=== PATIENT | female | born 1980 | race Caucasian/White ===

== ENCOUNTER 2016-03-03 11:35 | Emergency (ER) | payer BC, OTHER ==
[2016-03-03 11:41] VITALS: BP 156/100; PULSE 78; TEMP 98; BMI 29.2
[2016-03-03 13:11] LABS: URINE APPEARANCE CLEAR; URINE BILIRUBIN NEGATIVE (NEGATIVE); URINE BLOOD NEGATIVE (NEGATIVE); URINE COLOR STRAW; URINE GLUCOSE (UA) NEGATIVE (NEGATIVE); URINE KETONE NEGATIVE (NEGATIVE); URINE LEUK ESTERASE NEGATIVE (NEGATIVE); URINE NITRITE NEGATIVE (NEGATIVE); URINE PROTEIN NEGATIVE (NEGATIVE); URINE UROBILINOGEN NEGATIVE E.U./dl (0.2-1.0)
--- NOTE | 2016-03-03 13:17 | PDOC ---
History of Present Illness - History of Present Illness Initial Comments: 03/03/16 13:25 The patient is a 35 year old female, A2 with significant past medical history of asthma and arthritis who presents to the emergency department with abdominal pain and nausea for approximately 1 month. The patient states that her symptoms started approximately 2 weeks after having a Monovisc injection for arthritis. The patient reports that her pain has been sharp and dull in nature, varying in severity. The pain is localized to the suprapubic region and she reports associated bloating. She reports constant nausea but denies any vomiting or diarrhea. The patient states the is a possibility that she could be ; LMP was Feb 10. She states she took a home test about 2 weeks ago that was negative. The patient reports some chest pain and difficulty breathing this morning when she woke up. She denies any cough, nasal congestion , or cold symptoms. The patient denies sick contacts. She denies recent illness , fevers, and chills. <Ya Corona - Last Filed: 03/03/16 13:25> - General History Source: Patient, Old Records Exam Limitations: No Limitations <Claudette Russ - Last Filed: 03/03/16 15:21> - General Chief Complaint: Pain Stated Complaint: ABD PAIN, PALPITATIONS (ASTHMA) Time Seen by Provider: 03/03/16 12:28 Past History <Ya Corona - Last Filed: 03/03/16 13:25> - Past Medical History Asthma: Yes - Reproductive History Is Patient Now?: No - Psycho/Social/Smoking Cessation Hx Anxiety: No Suicidal Ideation: No Smoking History: Never smoked Hx Alcohol Use: Yes (SOCIAL) Drug/Substance Use Hx: No Substance Use Type: None <Claudette Russ - Last Filed: 03/03/16 15:21> - Past Medical History Allergies/Adverse Reactions: Allergies Allergy/AdvReac Type Severity Reaction Status Date / Time No Known Allergies Allergy Verified 03/03/16 11:41 Home Medications: Ambulatory Orders NK [No Known Home Medication] 12/02/15 Review of Systems - Review of Systems Comments:: 03/03/16 13:25 GENERAL/CONSTITUTIONAL: No fever or chills. No weakness. HEAD, EYES, EARS, NOSE AND THROAT: No change in vision. No ear pain or discharge. No sore throat. CARDIOVASCULAR: +Chest pain, +shortness of breath. RESPIRATORY: No cough, wheezing, or hemoptysis. GASTROINTESTINAL: +Nausea, +abdominal pain. No vomiting, diarrhea, or constipation. GENITOURINARY: No dysuria, frequency, or change in urination. MUSCULOSKELETAL: No joint or muscle swelling or pain. No neck or back pain. SKIN: No rash NEUROLOGIC: No headache, vertigo, loss of consciousness, or change in strength/ sensation. ENDOCRINE: No increased thirst. No abnormal weight change. HEMATOLOGIC/LYMPHATIC: No anemia, easy bleeding, or history of blood clots. ALLERGIC/IMMUNOLOGIC: No hives or skin allergy. <Ya Corona - Last Filed: 03/03/16 13:25> *Physical Exam - Vital Signs Last Vital Signs Temp Pulse Resp BP Pulse Ox 98.0 F 78 20 156/100 100 03/03/16 11:38 03/03/16 11:38 03/03/16 11:38 03/03/16 11:38 03/03/16 11:38 - Physical Exam Comments: 03/03/16 13:27 GENERAL: Awake, alert, and fully oriented, in no acute distress HEAD: No signs of trauma EYES: PERRLA, EOMI, sclera anicteric, conjunctiva clear ENT: Auricles normal inspection, hearing grossly normal, nares patent, oropharynx clear without exudates. Moist mucosa NECK: Normal ROM, supple, no lymphadenopathy, JVD, or masses LUNGS: Breath sounds equal, clear to auscultation bilaterally. No wheezes, and no crackles HEART: Regular rate and rhythm, normal S1 and S2, no murmurs, rubs or gallops ABDOMEN: +Mild suprapubic tenderness to palpation. Soft, normoactive bowel sounds. No guarding, no rebound. No masses EXTREMITIES: Normal range of motion, no edema. No clubbing or cyanosis. No cords, erythema, or tenderness NEUROLOGICAL: Cranial nerves II through XII grossly intact. Normal speech, normal gait SKIN: Warm, Dry, normal turgor, no rashes or lesions noted. <Ya Corona - Last Filed: 03/03/16 13:25> - Vital Signs Last Vital Signs Temp Pulse Resp BP Pulse Ox 98.0 F 78 20 156/100 100 03/03/16 11:38 03/03/16 11:38 03/03/16 11:38 03/03/16 11:38 03/03/16 11:38 <DeeClaudette mendes - Last Filed: 03/03/16 15:21> ED Treatment Course - ADDITIONAL ORDERS Additional order review: Laboratory Results 03/03/16 12:44 Urine Color Straw Urine Appearance Clear Urine pH 7.0 Ur Specific [place] 1.008 Urine Protein Negative Urine Glucose (UA) Negative Urine Ketones Negative Urine Blood Negative Urine Nitrite Negative Urine Bilirubin Negative Urine Urobilinogen Negative Ur Leukocyte Esterase Negative Urine HCG, Qual Negative <Ya Corona - Last Filed: 03/03/16 13:25> - LABORATORY CBC & Chemistry Diagram: 03/03/16 13:54 03/03/16 13:54 - ADDITIONAL ORDERS Additional order review: Laboratory Results 03/03/16 12:44 Urine Color Straw Urine Appearance Clear Urine pH 7.0 Ur Specific [place] 1.008 Urine Protein Negative Urine Glucose (UA) Negative Urine Ketones Negative Urine Blood Negative Urine Nitrite Negative Urine Bilirubin Negative Urine Urobilinogen Negative Ur Leukocyte Esterase Negative Urine HCG, Qual Negative <Claudette Russ - Last Filed: 03/03/16 15:21> Medical Decision Making - Medical Decision Making 03/03/16 13:15 35 y/o female with h/o asthma and arthritis who presents to the ED with one month h/o intermittent vomiting, abdominal pain and fatigue. DDx includes ut is not limited to: , UTI, gall bladder disease, gastritis, electrolyte abnormality, toxic/metabolic derangement. Plan: 1. Urine analysis and urine 2. Labs 3. Observe and re-evaluate 03/03/16 15:19 Addendum: The labs were reviewed and are noted inthe EMR. The patient is not . She has mild elevations in her LFT's but otherwise are within acceptable ranges. I have discussed the results of all studies with the patient and have advised her to follow-up with her PCP. I have also advised her to RTER if Sx persist, worsen or new Sx arise. <Claudette Russ - Last Filed: 03/03/16 15:21> *DC/Admit/Observation/Transfer - Attestations Scribe Attestion: 03/03/16 13:27 Documentation prepared by Ya Corona, acting as medical artist for Claudette Russ MD. <Ya Corona - Last Filed: 03/03/16 13:25> - Discharge Dispostion Admit: No - Attestations Physician Attestion: 03/03/16 13:17 I, Dr. Claudette Russ, attest that the scribes documentation that appears above has been prepared under my direction and personally reviewed by me in its entirety. I confirmed that the note above accurately reflects all work, treatment, procedures, and medical decision-making performed by me. <Claudette Russ - Last Filed: 03/03/16 15:21> Diagnosis at time of Disposition: Nausea and vomiting, Abdominal pain - Discharge Dispostion Disposition: HOME Condition at time of disposition: Stable - Referrals Referrals: STAFF,NOT ON [Primary Care Provider] - - Patient Instructions Printed Discharge Instructions: DI for Abdominal Pain-Adult Additional Instructions: Follow-up with your primary care physician within the next 2 weeks. Return to the ED if your symptoms persist, worsen or new symptoms arise.
[2016-03-03 14:06] LABS: BASOPHIL 0.5 % (0-2.0); EOSINOPHIL 0.5 % (0-4.5); MCH 30.8 pg (25.7-33.7); MEAN CELL VOLUME 90.6 fl (80-96); MEAN PLT VOLUME 8.9 fl (7.5-11.1); NEUTROPHILS 66.3 % (42.8-82.8); PLATELET COUNT 254 K/MM3 (134-434); RDW 12.7 % (11.6-15.6); WHITE BLOOD COUNT 9.4 K/mm3 (4.0-10.0)
[2016-03-03] MEDS ORDERED: KETOROLAC TROMETHAMINE 30 MG/1 ML VIAL IVPUSH ONE (14:22)
[2016-03-03 14:38] LABS: ALBUMIN 3.8 g/dl (3.4-5.0); ANION GAP 11 (8-16); CALCIUM 8.9 mg/dL (8.5-10.1); CO2 26 mmol/L (21-32); CREATININE 0.7 mg/dL (0.55-1.02); GLUCOSE,RANDOM 87 mg/dL (74-106); SGOT/AST 35 U/L (15-37); SGPT/ALT 28 U/L (12-78)
[2016-03-03 14:39] LABS: ALK PHOS 129 U/L (45-117); BILIRUBIN,TOTAL 0.3 mg/dL (0.2-1.0); TOT PROT 7.3 g/dl (6.4-8.2)
[2016-03-03] MEDS ORDERED: IBUPROFEN 400 MG TABLET (FP) PO ONE ×2 (14:56→14:57)
--- NOTE | 2016-03-09 23:31 | EKG ---
Test Reason : Blood Pressure : / mmHG Vent. Rate : 078 BPM Atrial Rate : 078 BPM P-R Int : 152 ms QRS Dur : 080 ms QT Int : 366 ms P-R-T Axes : 045 043 028 degrees QTc Int : 417 ms NORMAL SINUS RHYTHM NORMAL ECG NO PREVIOUS ECGS AVAILABLE Confirmed by MICHAEL BANKS MD ([id number]) on 03/09/2016 11:31:00 PM Referred By: Confirmed By:MICHAEL BANKS MD
== END 2016-03-03 15:40 | disposition home or self-care (01) ==
LOC: JER 11:35
DX: R10.30 Lower abdominal pain, unspecified (principal); R11.2 Nausea with vomiting, unspecified; J45.909 Unspecified asthma, uncomplicated
CPT/HCPCS: 36415; 80053; 81003; 84703; 85025; 93005; 93010; 99282-25

== ENCOUNTER 2016-03-22 21:31 | Emergency (ER) | payer BC, OTHER ==
[2016-03-22 21:38] VITALS: BP 118/68; PULSE 88; TEMP 98.2; BMI 25.8
[2016-03-22] MEDS ORDERED: ALBUTEROL SO4 2.5/IPRATROPIUM 0.5 INH SOL 3 ML VIAL.NEB. NEB ONE ×4 (21:50→22:40)
[2016-03-22] MEDS ORDERED: predniSONE 20 MG TABLET (UD) PO ONE (21:51)
--- NOTE | 2016-03-22 21:52 | PDOC ---
History of Present Illness - General Chief Complaint: Asthma Stated Complaint: ASTHMA Time Seen by Provider: 03/22/16 21:39 History Source: Patient Exam Limitations: No Limitations - History of Present Illness Initial Comments: 03/22/16 22:08 Chief complaint: Asthma and cough Patient is a 35-year-old female with a history of asthma states that she doesn' t get it very often who states that her asthma isn't bothering her for the last 2 days and today she is coughing a lot. No fever, does not feel ill, no shortness of breath. Patient states she's been using her albuterol inhaler and nebulizer a lot in the last 2 days but doesn't feel better. Patient is able to speak easily but is coughing frequently. Patient takes no other medications and denies any other medical issues GENERAL/CONSTITUTIONAL: No fever, weakness. dizziness HEAD, EYES, EARS, NOSE AND THROAT: No change in vision. No ear pain or discharge. No sore throat. CARDIOVASCULAR: No chest pain RESPIRATORY: No shortness of breath, + cough GASTROINTESTINAL: No pain, nausea, vomiting, diarrhea or constipation GENITOURINARY: No dysuria MUSCULOSKELETAL: No neck or back pain SKIN: No rash NEUROLOGIC: No headache, vertigo, loss of consciousness, or loss of sensation. GENERAL: The patient is awake, alert, and fully oriented, in no acute distress. HEAD: Normal with no signs of trauma. EYES: Pupils equal, round and reactive to light, sclera anicteric, conjunctiva clear. ENT: pharynx: no erythema, no exudate, uvula midline NECK: supple CHEST: No gross wheezing, but is coughing frequently, rr ABD: soft, nontender EXTREMITIES: Normal range of motion, no edema. NEUROLOGICAL: Normal speech, normal gait. SKIN: Warm, Dry Past History - Past Medical History Allergies/Adverse Reactions: Allergies Allergy/AdvReac Type Severity Reaction Status Date / Time No Known Allergies Allergy Verified 03/22/16 21:35 Home Medications: Ambulatory Orders Albuterol 0.083% Nebulizer Annie [Ventolin 0.083%] 1 neb NEB Q4H 03/22/16 Albuterol Sulfate Inhaler - [Ventolin Hfa Inhaler -] 1 - 2 inh PO Q4H 03/22/16 Prednisone [Deltasone] 40 mg PO DAILY #8 tablet 03/22/16 Asthma: Yes - Psycho/Social/Smoking Cessation Hx Anxiety: No Suicidal Ideation: No Smoking History: Never smoked Hx Alcohol Use: Yes (SOCIAL) Drug/Substance Use Hx: No Substance Use Type: None *Physical Exam - Vital Signs Last Vital Signs Temp Pulse Resp BP Pulse Ox 98.2 F 88 20 118/68 100 03/22/16 21:35 03/22/16 21:35 03/22/16 21:35 03/22/16 21:35 03/22/16 21:35 Medical Decision Making - Medical Decision Making 03/22/16 22:11 Patient who states her asthma is bothering her for the last 2 days, coughing, patient states she hasn't been hospitalized since a child, does not remember if she's ever taken prednisone and denies prior history of intubation. Patient appears stable, coughing. Patient will get DuoNeb prednisone be reassessed. Patient is satting well, not tachycardic and appears well other than for the frequent coughing and the complaint of feeling her asthma bothering her 03/22/16 22:41 Patient has a positive test, patient informed, states she has vitamins which she will take. Patient's cough is improving, will send her home on prednisone since she isn't using the inhalers frequently without any relief and she will follow-up with her regular doctor. No antibiotics are indicated and patient will be unable to take cough medicine given that she is *DC/Admit/Observation/Transfer Diagnosis at time of Disposition: Asthma Qualifiers: Asthma severity: unspecified severity Asthma complication type: with acute exacerbation Qualified Code(s): J45.901 - Unspecified asthma with (acute) exacerbation Qualifiers: Weeks of gestation: unspecified Qualified Code(s): Z33.1 - state, incidental - Discharge Dispostion Disposition: HOME Condition at time of disposition: Stable Admit: No - Prescriptions Prescriptions: Prednisone [Deltasone] 40 mg PO DAILY #8 tablet - Patient Instructions Printed Discharge Instructions: Asthma -- Adult Additional Instructions: take vitamins Use your inhaler or nebulizer of albuterol every 4 hours as needed Starting tomorrow take the prednisone 40 mg once daily for another 4 days Return to the ER if fever, shortness of breath or feeling sicker Follow-up with your doctor this week for reevaluation and further instructions regarding medications
[2016-03-22] MEDS ORDERED: predniSONE 20 MG TABLET (UD) ONE (21:57)
== END 2016-03-22 22:50 | disposition home or self-care (01) ==
LOC: JER 21:31
DX: O99.89 Other specified diseases and conditions complicating pregnancy, childbirth and the puerperium (principal); J45.901 Unspecified asthma with (acute) exacerbation; Z3A.00 Weeks of gestation of pregnancy not specified
CPT/HCPCS: 84703; 99281-25

== ENCOUNTER 2016-06-03 09:01 | Emergency (ER) | payer OTHER ==
[2016-06-03 09:11] VITALS: BP 155/88; PULSE 99; TEMP 98.1; BMI 30.1
--- NOTE | 2016-06-03 09:24 | PDOC ---
[id number] Timing/Duration: reports: other Associated Symptoms: reports: cough, shortness of breath. denies: chest pain/ soreness, earache, fever/chills, muscle aches, nasal congestion, nasal drainage , sore throat <Tatyana Sainz Last Filed: 06/03/16 10:26> <Sven Rosales - Last Filed: 06/08/16 02:29> - General Chief Complaint: Respiratory Stated Complaint: SOB Time Seen by Provider: 06/03/16 09:13 Past History - Past Medical History Asthma: Yes Other medical history: migraines - Psycho/Social/Smoking Cessation Hx Anxiety: No Suicidal Ideation: No Smoking History: Never smoked Have you smoked in the past 12 months: No Information on smoking cessation initiated: No Hx Alcohol Use: No Drug/Substance Use Hx: No Substance Use Type: None <Tatyana Sainz - Last Filed: 06/03/16 10:26> <Sven Rosales - Last Filed: 06/08/16 02:29> - Past Medical History Allergies/Adverse Reactions: Allergies Allergy/AdvReac Type Severity Reaction Status Date / Time No Known Allergies Allergy Verified 03/22/16 21:35 Home Medications: Ambulatory Orders Cmb#95/Iron/FA/Dha [ + Dha Combo Pack] 1 each PO DAILY Review of Systems - Review of Systems Constitutional: No: Chills, Fever HEENTM: No: Ear Pain, Throat Pain Respiratory: Yes: Cough, Shortness of Breath Cardiac (ROS): No: Chest Pain, Palpitations ABD/GI: No: Nausea, Vomiting <Tatyana Sainz Last Filed: 06/03/16 10:26> *Physical Exam - Vital Signs Last Vital Signs Temp Pulse Resp BP Pulse Ox 98.1 F 99 H 18 155/88 98 06/03/16 09:08 06/03/16 09:08 06/03/16 09:08 06/03/16 09:08 06/03/16 09:08 - Physical Exam General Appearance: Yes: Appropriately Dressed. No: Apparent Distress HEENT: positive: Normal ENT Inspection, Normal Voice. negative: Scleral Icterus (R), Scleral Icterus (L) Neck: positive: Supple. negative: Lymphadenopathy (R), Lymphadenopathy (L) Respiratory/Chest: negative: Respiratory Distress Cardiovascular: positive: Regular Rate, S1, S2 Integumentary: positive: Dry, Warm Neurologic: positive: Fully Oriented, Alert, Normal Mood/Affect <Tatyana Sainz - Last Filed: 06/03/16 10:26> - Vital Signs Last Vital Signs Temp Pulse Resp BP Pulse Ox 98.1 F 99 H 18 155/88 99 06/03/16 09:08 06/03/16 09:08 06/03/16 09:08 06/03/16 09:08 06/03/16 10:11 <Sven Rosales - Last Filed: 06/08/16 02:29> Medical Decision Making - Medical Decision Making 06/03/16 09:23 36-year-old female, approximately 4 months w/ no issues w/ preg so far , p/w productive cough w/ sob x 4 days, no f/c. Denies CP, palpitations, leg pain or swelling. States she developed similar sxs 1 month ago and was seen at OSH and dx w/ pneumonia on CT chest which was negative for PE per pt. See exam Cough w/ sob Tx for PNA 1 month ago at OSH after p/w similar sxs, was r/o PE then Stable w/ unremarkable exam Possibly viral, r/o PNA, low suspicion for PE -CXr pending, radiology aware pt 06/03/16 09:37 06/03/16 10:27 CXR read as neg. Pt remains well buzz and stable, currently sitting on stretcher and texting on her phone. Will dc to continue f/u with OB <Tatyana Sainz - Last Filed: 06/03/16 10:26> - Medical Decision Making 06/08/16 02:29 The patient was seen and evaluated in conjunction with NICOLETTE Sainz under my direct supervision, ancillary studies were reviewed. I agree with the plan as outlined by NICOLETTE Sainz . <Sven Rosales - Last Filed: 06/08/16 02:29> *DC/Admit/Observation/Transfer <Tatyana Sainz - Last Filed: 06/03/16 10:26> <Sven Rosales - Last Filed: 06/08/16 02:29> Diagnosis at time of Disposition: URI (upper respiratory infection) Qualifiers: URI type: unspecified viral URI Qualified Code(s): J06.9 - Acute upper respiratory infection, unspecified - Discharge Dispostion Disposition: HOME Condition at time of disposition: Good - Referrals Referrals: STAFF,NOT ON [Primary Care Provider] - - Patient Instructions Printed Discharge Instructions: DI for Viral Upper Respiratory Infection -- Adult Additional Instructions: Continue to follow up with your OB. Return to ED for worsening of symptoms
== END 2016-06-03 10:38 | disposition home or self-care (01) ==
LOC: JER 09:01
DX: J06.9 Acute upper respiratory infection, unspecified (principal); B97.89 Other viral agents as the cause of diseases classified elsewhere; J45.909 Unspecified asthma, uncomplicated; G43.909 Migraine, unspecified, not intractable, without status migrainosus
CPT/HCPCS: 71010-TC; 99282-25

== ENCOUNTER 2016-09-10 06:42 | Emergency (ER) | payer OTHER ==
[2016-09-10 06:50] VITALS: BMI 34.0
[2016-09-10] MEDS ORDERED: ALBUTEROL SO4 0.083% IH SOL 2.5 MG/3 ML VIAL.NEB. NEB ONE ×2 (06:55→06:59)
--- NOTE | 2016-09-10 08:01 | PDOC ---
History of Present Illness - General Chief Complaint: Shortness of Breath Stated Complaint: DIFFICULTY BREATHING Time Seen by Provider: 09/10/16 07:02 - History of Present Illness Initial Comments: 09/10/16 09:23 Patient is a 36 year old female with a history of asthma who presents with SOB. The patient reports cough and nasal congestion beginning 5 days ago with associated SOB beginning 4 days ago. She states that since then, the SOB has been getting worse and is exacerbated by lying flat and exertion and has not been relieved with use of her albuterol inhaler. 1 day ago, she began experiencing nausea and an episode of vomiting prompting her to present to the ED today. She states that this SOB does not feel like her normal asthma exacerbations. She denies fevers, chills, chest pain, abdominal pain, or changes with urination or bowel movements. Past History - Past Medical History Allergies/Adverse Reactions: Allergies Allergy/AdvReac Type Severity Reaction Status Date / Time No Known Allergies Allergy Verified 09/10/16 06:50 Home Medications: Ambulatory Orders Cmb#95/Iron/FA/Dha [ + Dha Combo Pack] 1 each PO DAILY Albuterol Sulfate Inhaler - [Ventolin Hfa Inhaler -] 1 - 2 inh PO QID 09/10/16 Azithromycin 250 mg PO DAILY #4 tablet 09/10/16 Asthma: Yes - Psycho/Social/Smoking Cessation Hx Anxiety: No Suicidal Ideation: No Smoking History: Never smoked Have you smoked in the past 12 months: No Hx Alcohol Use: No Drug/Substance Use Hx: No Substance Use Type: None Review of Systems - Review of Systems Constitutional: No: Chills, Fever Respiratory: Yes: Cough, Shortness of Breath Cardiac (ROS): No: Chest Pain, Lightheadedness, Palpitations ABD/GI: Yes: Nausea, Vomiting. No: Constipated, Diarrhea : No: Dysuria Integumentary: No: Rash Neurological: No: Headache, Numbness, Tingling, Weakness *Physical Exam - Vital Signs Last Vital Signs Temp Pulse Resp BP Pulse Ox 98.3 F 115 H 22 131/80 96 09/10/16 06:48 09/10/16 07:35 09/10/16 07:35 09/10/16 07:35 09/10/16 07:35 - Physical Exam Comments: 09/10/16 09:33 General Appearance: Nourished. No Apparent Distress HEENT: No Pharyngeal Erythema, Tonsillar Exudate, Tonsillar Erythema Respiratory/Chest: Lungs Clear, Normal Breath Sounds. No Crackles, Rales, Rhonchi, Wheezing Cardiovascular: Regular Rhythm, Regular Rate. No Murmur, Gallop/S3, Gallop/S4 Gastrointestinal/Abdominal: Normal Bowel Sounds, Soft. No Guarding, Rebound, Tenderness Extremity: Normal Capillary Refill Integumentary: Normal Color, Dry, Warm Neurologic: Fully Oriented, Alert, Normal Mood/Affect, Normal Response ED Treatment Course - LABORATORY CBC & Chemistry Diagram: 09/10/16 09:03 09/10/16 09:03 - Medications Given in the ED: ED Medications Discontinued Medications Generic Name Dose Route Start Last Admin Trade Name Freq PRN Reason Stop Dose Admin Albuterol Sulfate 2 amp 09/10/16 06:59 09/10/16 07:00 Ventolin 0.083% Nebulizer Soln - NEB 09/10/16 07:00 2 amp NOW ONE Administration Medical Decision Making - Medical Decision Making 09/10/16 09:34 Patient is a 36 year old 30 week female who presents with SOB. Differential includes but is not limited to: Bronchitis, Asthma, Influenza, Pneumonia. Given her presentation and physical exam we will obtain a cbc, cmp to evaluate for infectious or metabolic etiologies. We don't wish to expose her to radiation due to her . We will obtain an influenza swab as well. It is likely her symptoms may be due to a bronchitis. She reports minimal improvement after an duoneb treatment. 09/10/16 10:30 CBC demonstrates an elevated WBC to 19. CMP is unremarkable and influenza swab is negative. Given her presenting symptoms as well as WBC elevation, we are concerned for a possible pneumonia component of her illness, however we do not wish to obtain a chest radiograph due to her . We gave the patient a dose of azithromycin here in the ED with improvement in her symptoms including improvement in her O2 sats now at 95% on RA. We discussed the results with the patient and feel comfortable discharging her home with a course of azithromycin. We discussed strict return precautions and advised her to follow up with her financial coordinator. The patient voiced understanding and is agreeable with the plan. *DC/Admit/Observation/Transfer Diagnosis at time of Disposition: Bronchitis Pneumonia Qualifiers: Pneumonia type: due to unspecified organism Laterality: unspecified laterality Lung location: unspecified part of lung Qualified Code(s): J18.9 - Pneumonia, unspecified organism - Discharge Dispostion Disposition: HOME Condition at time of disposition: Improved Admit: No - Prescriptions Prescriptions: Azithromycin 250 mg PO DAILY #4 tablet - Referrals Referrals: STAFF,NOT ON [Primary Care Provider] - - Patient Instructions Printed Discharge Instructions: DI for Acute Bronchitis, DI for Pneumonia -- Adult Additional Instructions: Please return to the ER if you experience concerning or worsening symptoms including fevers, chills, increased mucus production or increased shortness of breath. We have sent a prescription for Azithromycin 250mg that you should take once a day for 4 days beginning tomorrow. You may take Tylenol 650mg every 4 hours as needed for body aches. You may take over the counter cough suppressants such as guaifenesin for your cough. Please call to schedule a follow up appointment with your OB/financial coordinator to discuss your ER visit. DISCHARGE FROM LABOR AND DELIVERY DISCHARGE TO HOME TO KEEP YOUR NEXT SCHEDULED CARE APPOINTMENT. RETURN TO LABOR AND DELIVERY IF YOU ARE HAVING REGULAR CONTRACTIONS, YOU BREAK YOUR WATER, YOU HAVE PERIOD LIKE VAGINAL BLEEDING OR YOU ARE NOT FEELING YOUR BABY MOVE. BE SURE TO STAY HYDRATED BY DRINKING 8-10 GLASSES OF WATER EACH DAY. TAKE MEDICATIONS PRESCRIBED TO YOU FROM THE ER PHYSICIAN IF YOU HAVE ANY QUESTIONS OR CONCERNS YOU CAN CONTACT YOUR CARE PROVIDER OR LABOR AND DELIVERY AT [phone]. - Attestations Physician Attestion: 09/10/16 10:26 I, Dr. Donal Grajeda, attest that this document has been prepared under my direction and personally reviewed by me in its entirety. I further attest, that it accurately reflects all work, treatment, procedures and medical decision -making performed by me.
[2016-09-10] MEDS ORDERED: ACETAMINOPHEN 325 MG TABLET (FP) PO ONE (08:40)
[2016-09-10] MEDS ORDERED: SODIUM CHLORIDE 1,000 ML IV STA (08:40)
[2016-09-10] MEDS ORDERED: ACETAMINOPHEN 325 MG TABLET (FP) ONE (08:49)
--- NOTE | 2016-09-10 09:04 | PDOC ---
Attending Attestation - Resident Resident Name: Donal Grajeda - ED Attending Attestation I have performed the following: I have examined & evaluated the patient, The case was reviewed & discussed with the resident, I agree w/resident's findings & plan, Exceptions are as noted - HPI HPI: 09/10/16 08:51 36-year-old female with past medical history of asthma presents with upper respiratory infection symptoms. For last several days, patient reports a positive sick contact with a neighbor with URI symptoms. Subsequently developed nasal congestion, rhinorrhea and productive cough. Reported tactile fevers but initially denied dyspnea. Patient stated that she's been coughing frequently is now more dyspneic but denies midsternal chest pain. She has taken albuterol with no improvement in her symptoms. Denies prior history of pulmonary embolus. Came into the ED for further evaluation. - Physicial Exam PE: 09/10/16 08:53 GENERAL: Awake, alert, and fully oriented, in no acute distress. HEAD: No signs of trauma EYES: PERRLA, EOMI, sclera anicteric, conjunctiva clear ENT: Auricles normal inspection, hearing grossly normal, nares patent, oropharynx clear without exudates. NECK: Normal ROM, supple, no lymphadenopathy, JVD, or masses LUNGS: Breath sounds equal, clear to auscultation bilaterally. No wheezes, and no crackles HEART: Regular rate and rhythm, normal S1 and S2, no murmurs, rubs or gallops ABDOMEN: Soft, nontender, normoactive bowel sounds. No guarding, no rebound. No masses EXTREMITIES: Normal range of motion, no edema. No clubbing or cyanosis. No cords, erythema, or tenderness NEUROLOGICAL: Cranial nerves II through XII grossly intact. Normal speech, normal gait SKIN: Warm, Dry, normal turgor, no rashes or lesions noted. - Medical Decision Making 09/10/16 09:03 Vital Signs Temp Pulse Resp BP Pulse Ox 98.3 F 115 H 22 131/80 96 09/10/16 06:48 09/10/16 07:35 09/10/16 07:35 09/10/16 07:35 09/10/16 07:35 I suspect the patient likely have a upper respiratory infection versus bronchitis. Patient's lungs are clear. Noted please slightly hypoxic and tachycardic, which patient has been receiving albuterol. After discussion with the patient, will defer on chest x-ray. We'll give IV fluids. Check for influenza. Obtain labs. Patient overall is nontoxic appearing and not in respiratory distress. We'll likely initiate azithromycin for bronchitis. 09/10/16 10:16 CBC, BMP 09/10/16 09:03 09/10/16 09:03 CMP Sodium 138 mmol/L (136-145) 09/10/16 09:03 Potassium 3.5 mmol/L (3.5-5.1) D 09/10/16 09:03 Chloride 107 mmol/L (98-107) 09/10/16 09:03 Carbon Dioxide 19 mmol/L (21-32) L D 09/10/16 09:03 Anion Gap 12 (8-16) 09/10/16 09:03 BUN 6 mg/dL (7-18) L D 09/10/16 09:03 Creatinine 0.5 mg/dL (0.55-1.02) L D 09/10/16 09:03 Creat Clearance w eGFR > 60 (>60) 09/10/16 09:03 Random Glucose 102 mg/dL (74-106) 09/10/16 09:03 Calcium 8.7 mg/dL (8.5-10.1) 09/10/16 09:03 Total Bilirubin 0.3 mg/dL (0.2-1.0) 09/10/16 09:03 AST 38 U/L (15-37) H 09/10/16 09:03 ALT 60 U/L (12-78) D 09/10/16 09:03 Alkaline Phosphatase 131 U/L (45-117) H 09/10/16 09:03 Total Protein 6.9 g/dl (6.4-8.2) 09/10/16 09:03 Albumin 2.8 g/dl (3.4-5.0) L D 09/10/16 09:03 Labs demonstrate 19.1. Likely secondary to and bronchitis. Pt appears more comfortable. Repeat labs shows 95% on Room Air and HR improved. Will trial outpatient azithromycin with strict return precautions.
[2016-09-10 09:20] LABS: BASOPHIL 0.3 % (0-2.0); EOSINOPHIL 0.6 % (0-4.5); MCH 29.8 pg (25.7-33.7); MCHC 33.8 g/dl (32.0-36.0); MEAN CELL VOLUME 88.3 fl (80-96); NEUTROPHILS 87.5 % (42.8-82.8); PLATELET COUNT 223 K/MM3 (134-434); WHITE BLOOD COUNT 19.1 K/mm3 (4.0-10.0)
[2016-09-10] MEDS ORDERED: AZITHROMYCIN 250 MG TABLET (FP) PO ONE (09:49)
[2016-09-10 09:52] LABS: ALBUMIN 2.8 g/dl (3.4-5.0); ALK PHOS 131 U/L (45-117); ANION GAP 12 (8-16); BILIRUBIN,TOTAL 0.3 mg/dL (0.2-1.0); CALCIUM 8.7 mg/dL (8.5-10.1); CO2 19 mmol/L (21-32); CREATININE 0.5 mg/dL (0.55-1.02); GLUCOSE,RANDOM 102 mg/dL (74-106); SGPT/ALT 60 U/L (12-78); TOT PROT 6.9 g/dl (6.4-8.2)
[2016-09-10] MEDS ORDERED: AZITHROMYCIN 250 MG TABLET (FP) ONE (09:55)
[2016-09-10 09:58] LABS: SGOT/AST 38 U/L (15-37)
[2016-09-10 11:29] VITALS: BP 131/80; PULSE 80; TEMP 98.1
== END 2016-09-10 12:23 | disposition home or self-care (01) ==
LOC: JER 06:42
PROC: 3E0F7GC Introduction of Other Therapeutic Substance into Respiratory Tract, Via Natural or Artificial Opening (ICD-10-PCS; principal; 2016-09-10)
PROC: 3E0337Z Introduction of Electrolytic and Water Balance Substance into Peripheral Vein, Percutaneous Approach (ICD-10-PCS; 2016-09-10)
DX: O26.893 Other specified pregnancy related conditions, third trimester (principal); J18.9 Pneumonia, unspecified organism; J40 Bronchitis, not specified as acute or chronic
CPT/HCPCS: 36415; 80053; 85025; 87804; 94640; 96360; 99284-25

== ENCOUNTER 2016-09-19 13:07 | Emergency (ER) | payer OTHER ==
[2016-09-19 13:13] VITALS: TEMP 98.2; BMI 34.0
--- NOTE | 2016-09-19 13:23 | PDOC ---
Attending Attestation - Resident Resident Name: Bhupinder Ford - HPI HPI: 09/23/16 13:49 Pt presents to the ED complaining of RUQ and epigastric discomfort that has been persistent for several weeks. Denies shortness of breath. - Physicial Exam PE: 09/23/16 14:17 Agree with above exam. Abdomen tender in the RUQ to deep palpation. - Medical Decision Making 09/23/16 14:18 Pt presents to the ED complaining of a two week history of RUQ pain. Concern for biliary disease, pancreatitis, gastritis, less likely appedicitis or PNA. Labs are within normal limits. US negative for biliary disease. Will transfer to L and D for monitoring.
--- NOTE | 2016-09-19 13:54 | PDOC ---
History of Present Illness - General Chief Complaint: Chest Pain Stated Complaint: CHEST PAIN/31 wks Time Seen by Provider: 09/19/16 13:19 - History of Present Illness Initial Comments: 09/19/16 13:46 36F in her 1st at 32 weeks w/ hx of asthma and recent episode of acute bronchitis presenting with acute RUQ abdominal pain. She reports that she developed acute bronchitis one week ago and was treated with azithromycin. She returned to the hospital 2 days later with some respiratory issues, was given albuterol and O2, improved and was discharged home. During this time, she developed LUQ and side moderate pain, but then she also developed RUQ pain in the last few days which is much more severe, 10/10, extends to top of her right breast, is sharp, constant, worsened by using abdominal muscles, unimproved with tyelonol, heat packs, or ice packs. She also endorses some nausea and a few episodes of emesis with some dizziness. She denies fevers, chills, diarrhea , headache, dysuria. She denies vaginal spotting, leakage of fluids, and reports normal movement. Her has had no complications, and was just seen by her OBGYN 2 weeks ago. 09/19/16 13:58 Past History - Past Medical History Allergies/Adverse Reactions: Allergies Allergy/AdvReac Type Severity Reaction Status Date / Time No Known Allergies Allergy Verified 09/19/16 13:13 Home Medications: Ambulatory Orders Cmb#95/Iron/FA/Dha [ + Dha Combo Pack] 1 each PO DAILY Asthma: Yes Comment:: 09/19/16 13:54 PMH: asthma PSH: excision of cervical tissue Meds: albuterol, azithromycin, cough medicine Allergies: NKDA Fam Hx: HTN, HLD, GERD, no gallbladder issues Social Hx: no toxic habits - Psycho/Social/Smoking Cessation Hx Anxiety: No Suicidal Ideation: No Smoking History: Never smoked Have you smoked in the past 12 months: No Information on smoking cessation initiated: No Hx Alcohol Use: No Drug/Substance Use Hx: No Substance Use Type: None Review of Systems - Review of Systems Comments:: 09/19/16 13:56 GENERAL: No fever, chills, night sweats, or weakness. HEAD, EYES, EARS, NOSE AND THROAT: No change in vision, ear pain, or sore throat CARDIOVASCULAR: No chest pain or palpitations RESPIRATORY: No cough, wheezing, or hemoptysis. GASTROINTESTINAL: + nausea, + vomiting, no diarrhea, + constipation, no blood in the stool. GENITOURINARY: No dysuria, frequency, or urgency MUSCULOSKELETAL: No joint or muscle swelling or pain. SKIN: No rashes or pruritis ENDOCRINE: No increased thirst. No abnormal weight change NEUROLOGIC: No headache, + dizziness, no loss of consciousness, or change in strength/sensation. *Physical Exam - Vital Signs Last Vital Signs Temp Pulse Resp BP Pulse Ox 98.2 F 92 H 18 127/77 99 09/19/16 13:11 09/19/16 13:11 09/19/16 13:11 09/19/16 13:11 09/19/16 13:11 - Physical Exam Comments: 09/19/16 13:57 GENERAL: Awake, alert, and fully oriented, in mild distress HEAD: normocephalic, atraumatic HEENT: PERRLA, EOMI NECK: Normal ROM, supple, no lymphadenopathy, JVD, or masses HEART: Regular rate and rhythm, normal S1 and S2, no murmurs, rubs or gallops, peripheral pulses normal and equal bilaterally. LUNGS: CTAB, no wheezing, no rales ABDOMEN: Soft, tender to palpation in RUQ and LUQ and sides of abdomen Back: No CVA tenderness EXTREMITIES: Normal range of motion, no edema. SKIN: Warm, dry, no rashes or lesions noted. NEUROLOGICAL: Cranial nerves II through XII grossly intact. Normal speech, normal gait, no focal sensorimotor deficits ED Treatment Course - LABORATORY CBC & Chemistry Diagram: 09/19/16 14:25 09/19/16 14:25 Medical Decision Making - Medical Decision Making 09/19/16 13:59 36F in her 1st at 32 weeks w/ hx of asthma and recent episode of acute bronchitis presenting with acute RUQ and LUQ abdominal pain along with nausea, emesis, and dizziness. Exam notable for RUQ and LUQ tenderness. Differential includes MSK s/p bronchitis coughing, appendecitis, cholelithiasis/ cholecystitis, kidney stones. CBC: wnl CMP: wnl UA: negative US: normal An MSK etiology is most likely considering the labs and imaging. Pt was sent to L&D for tocodynamic testing prior to discharge. 09/19/16 14:43 09/19/16 15:41 *DC/Admit/Observation/Transfer Diagnosis at time of Disposition: RUQ abdominal pain Abdominal pain Qualifiers: Abdominal location: right upper quadrant Qualified Code(s): R10.11 - Right upper quadrant pain - Discharge Dispostion Disposition: HOME Condition at time of disposition: Stable Admit: No - Patient Instructions Additional Instructions: Your labs and imaging demonstrate no acute pathology. Your symptoms are likely due to muscle soreness after your episode of acute bronchitis. Take tylenol as directed for your pain. If your symptoms persist for another week or your experience any concerning new symptoms like shortness of breath or chest pain, please return to the ED. - Attestations Physician Attestion: 09/19/16 15:48 I, Dr. Bhupinder Ford, attest that this document has been prepared under my direction and personally reviewed by me in its entirety. I further attest, that it accurately reflects all work, treatment, procedures and medical decision -making performed by me.
[2016-09-19 14:36] LABS: MCH 29.6 pg (25.7-33.7); MCHC 33.7 g/dl (32.0-36.0); MEAN CELL VOLUME 87.9 fl (80-96); MEAN PLT VOLUME 9.3 fl (7.5-11.1); PLATELET COUNT 287 K/MM3 (134-434); WHITE BLOOD COUNT 13.3 K/mm3 (4.0-10.0)
[2016-09-19 14:49] LABS: ALBUMIN 2.5 g/dl (3.4-5.0); ANION GAP 11 (8-16); CO2 20 mmol/L (21-32); CREATININE 0.5 mg/dL (0.55-1.02); GLUCOSE,RANDOM 82 mg/dL (74-106); SGPT/ALT 29 U/L (12-78)
[2016-09-19 14:51] LABS: BILIRUBIN,TOTAL 0.2 mg/dL (0.2-1.0); TOT PROT 6.4 g/dl (6.4-8.2)
[2016-09-19 14:52] LABS: ALK PHOS 144 U/L (45-117)
[2016-09-19 14:53] LABS: SGOT/AST 25 U/L (15-37)
[2016-09-19 15:06] LABS: PH,URINE 6.5 (5.0-8.0); URINE APPEARANCE CLEAR; URINE BILIRUBIN NEGATIVE (NEGATIVE); URINE BLOOD NEGATIVE (NEGATIVE); URINE COLOR LT. YELLOW; URINE GLUCOSE (UA) NEGATIVE (NEGATIVE); URINE KETONE NEGATIVE (NEGATIVE); URINE LEUK ESTERASE NEGATIVE (NEGATIVE); URINE NITRITE NEGATIVE (NEGATIVE); URINE PROTEIN NEGATIVE (NEGATIVE); URINE UROBILINOGEN 0.2 mg/dL (0.2-1.0)
[2016-09-19 16:33] VITALS: BP 132/78; PULSE 79
--- NOTE | 2016-09-23 15:05 | EKG ---
Test Reason : Blood Pressure : / mmHG Vent. Rate : 110 BPM Atrial Rate : 110 BPM P-R Int : 130 ms QRS Dur : 074 ms QT Int : 324 ms P-R-T Axes : 050 042 030 degrees QTc Int : 438 ms SINUS TACHYCARDIA OTHERWISE NORMAL ECG WHEN COMPARED WITH ECG OF 03-MAR-2016 11:47, NO SIGNIFICANT CHANGE WAS FOUND Confirmed by LAYLA ROSENTHAL MD ([id number]) on 09/23/2016 3:04:54 PM Referred By: Confirmed By:LAYLA ROSENTHAL MD
== END 2016-09-19 16:35 | disposition home or self-care (01) ==
LOC: JER 13:07
DX: O26.893 Other specified pregnancy related conditions, third trimester (principal); Z3A.32 32 weeks gestation of pregnancy; R10.11 Right upper quadrant pain; J45.909 Unspecified asthma, uncomplicated
CPT/HCPCS: 36415; 76705-TC; 80053; 81003; 85027; 93005; 93010; 99283-25

== ENCOUNTER 2017-01-16 07:15 | Emergency (ER) | payer OTHER ==
[2017-01-16 08:05] VITALS: BMI 31.8
--- NOTE | 2017-01-16 08:11 | PDOC ---
History of Present Illness - General Chief Complaint: Pain Stated Complaint: LUMP LEFT BREAST Time Seen by Provider: 01/16/17 07:49 History Source: Patient Exam Limitations: No Limitations - History of Present Illness Initial Comments: This is a 36 YOF who is 11 wks post- (stopped pumping milk about 6 weeks ago because she stopped producing) with h/o surgical removal of pre-cancerous cells from her cervix at age 19. She presents with left breast discomfort worsening up to 11/16 when she lays on her left side onset 2 days ago. She left a lump in the breast (points to lateral aspect) for the first time yesterday afternoon, too late to see her PCP in clinic. She has taken no medication for this and has never had prior similar episodes. She denies fever, chills, nausea , vomiting, night sweats, unexpected weight loss, arm swelling, swollen lymph nodes, skin changes/rashes, etc. She had a PAP smear about a year ago which was normal. She has never had a mammogram and has no family h/o breast cancer and had only a first cousin with ovarian cancer. Her PCP is Dr. Sanchez at [facility] ([phone]). Past History - Past Medical History Allergies/Adverse Reactions: Allergies Allergy/AdvReac Type Severity Reaction Status Date / Time No Known Allergies Allergy Verified 01/16/17 07:22 Asthma: Yes COPD: No Other medical history: migraines - Suicide/Smoking/Psychosocial Hx Smoking History: Never smoked Have you smoked in the past 12 months: No Hx Alcohol Use: No Drug/Substance Use Hx: No Substance Use Type: None Review of Systems - Review of Systems Able to Perform ROS?: Yes Constitutional: No: Chills, Fever, Night Sweats, Unintentional Wgt. Loss, Unexplained wgt Loss HEENTM: No: Nose Congestion, Throat Pain Respiratory: No: Cough, Shortness of Breath Cardiac (ROS): No: Chest Pain, Palpitations ABD/GI: No: Constipated, Diarrhea, Nausea, Vomiting : No: Burning, Dysuria Musculoskeletal: No: Back Pain, Neck Pain Integumentary: Yes: Lumps (left breast, tender). No: Bruising, Rash Neurological: No: Headache, Numbness, Tingling, Weakness, Dizziness Endocrine: No: Unexplained Weight Gain, Unexplained Weight Loss Hematologic/Lymphatic: No: Lymph Node Abnormalities, Swollen Glands *Physical Exam - Vital Signs Last Vital Signs Temp Pulse Resp BP Pulse Ox 98.2 F 85 18 142/85 99 01/16/17 07:18 01/16/17 07:18 01/16/17 07:18 01/16/17 07:18 01/16/17 07:18 - Physical Exam General Appearance: Yes: Nourished, Appropriately Dressed, Other (pleasant adult female answering questions appropriately and moving both upper extremities freely without pain). No: Apparent Distress HEENT: positive: EOMI, KADY, Normal ENT Inspection, Normal Voice, Hearing Grossly Normal. negative: Scleral Icterus (R), Scleral Icterus (L), Nasal Congestion Neck: positive: Trachea midline, Normal Thyroid, Supple. negative: Tender, Rigid, Lymphadenopathy (R), Lymphadenopathy (L) Respiratory/Chest: positive: Lungs Clear, Normal Breath Sounds. negative: Respiratory Distress, Crackles, Rhonchi, Stridor, Wheezing Cardiovascular: positive: Regular Rhythm, Regular Rate. negative: Edema, Murmur Gastrointestinal/Abdominal: positive: Normal Bowel Sounds, Soft. negative: Tender, Organomegaly, Pulsatile Mass, Guarding Lymphatic: positive: Other (no axillary or cervical or submandibular lymphadenopathy). negative: Adenopathy, Tenderness Musculoskeletal: positive: Normal Inspection. negative: Decreased Range of Motion, Vertebral Tenderness Extremity: positive: Normal Capillary Refill, Normal Inspection, Normal Range of Motion. negative: Tender, Cyanosis Integumentary: positive: Normal Color, Dry, Warm, Other (breasts symmetric, left lateral breast tenderness from 3 o'clock to 6 o'clock with 2.5 cm tender mass at about 4 o'clock, no skin changes). negative: Erythema, Rash, Bruising Neurologic: positive: lens silverer II-XII NML intact (grossly), Fully Oriented, Alert, Normal Mood/Affect, Normal Response, Motor Strength 5/5 Medical Decision Making - Medical Decision Making 36 YOF with h/o pre-cancerous cells removed from cervix p/w left breast tender mass. On exam slight HTN but VS otherwise wnl. Left breast with ttp and 2.5 cm mass laterally, no LAD, no asymmetry. DDX IBNLT breast abscess, fibrocystic change, unknown trauma, malignancy, mastitis, etc. Ordered is left breast US limited to r/o abscess. 12/10/17 08:46 Per US, the lesion appears like a cyst but this is not an official read. The official read will be done on Tuesday. The patient is informed of this and will call in for results on Tuesday. She will follow up with her PCP this week. Referral info is given for [facility]. Call placed to Malathi Sanchez to inform her of the patient's visit and findings. Return precautions are discussed. *DC/Admit/Observation/Transfer Diagnosis at time of Disposition: Breast lump in female - Discharge Dispostion Disposition: HOME Condition at time of disposition: Stable Admit: No - Referrals Referrals: Josué Balderrama MD [Staff Physician] - - Patient Instructions Additional Instructions: You were seen in the ER for a painful breast lesion. We did an ultrasound and the official results will not be back until Tuesday. Please call back to the ER on Tuesday afternoon for the results. Take Motrin and Tylenol for the pain, and you can ice the area if it helps. Please follow up with your PCP and with the [facility] (info below). Return to the ER for any new or worsening symptoms like fever. Josué Balderrama MD. [phone] [place] [id number] - Post Discharge Activity
[2017-01-16 09:58] VITALS: BP 138/94; PULSE 71; TEMP 97.7
--- NOTE | 2017-01-16 11:26 | PDOC ---
Attending Attestation - Resident Resident Name: Nara Genao - ED Attending Attestation I have performed the following: I have examined & evaluated the patient, The case was reviewed & discussed with the resident, I agree w/resident's findings & plan, Exceptions are as noted - HPI HPI: 01/16/17 11:22 36-year-old female currently 11 weeks here today complaining of left breast tenderness and mass. Patient states breast tenderness started a few days ago she did stop breast-feeding a few weeks ago is no longer pumping breast mass was rubbery mild tenderness no breast erythema or discharge no fevers chills nausea vomiting no prior history of known breast cyst does have a family history of ovarian cancer and a cousin otherwise no known family history of breast cancer - Physicial Exam PE: 01/16/17 11:24 awake alert nad. Lung exam is clear bilaterally heart is regular no murmurs rubs or gallops left breast is noted for a mobile rubbery consistency 2-1/2 cm mass in the left outer lower quadrant no nipple discharge no breast erythema no skin changes - Medical Decision Making 01/16/17 11:24 Differential includes cyst plugged duct no current clinical signs of mastitis will obtain a ultrasound to rule out abscess or other abnormality Ultrasound showed a clear noncomplex-appearing cyst official read we put in the system and the day following patient given outpatient follow-up with her primary doctor and referral to [facility]., Importance of follow- up emphasized told to take Motrin as needed for pain
== END 2017-01-16 09:58 | disposition home or self-care (01) ==
LOC: JER 07:15
DX: N63.0 Unspecified lump in unspecified breast (principal); J45.909 Unspecified asthma, uncomplicated
CPT/HCPCS: 76642-TC-LT; 99282-25

== ENCOUNTER 2017-02-20 14:18 | Emergency (ER) | payer OTHER ==
[2017-02-20 14:23] VITALS: BP 142/85; PULSE 82; TEMP 97.7; BMI 32.8
--- NOTE | 2017-02-20 15:49 | PDOC ---
History of Present Illness - General Chief Complaint: Pain Stated Complaint: LT HAND PAIN Time Seen by Provider: 02/20/17 15:22 History Source: Patient Exam Limitations: No Limitations - History of Present Illness Initial Comments: 02/20/17 15:53 Patient is a 36-year-old female with no past medical history who presents to the emergency department today complaining of left wrist pain. Patient states that her wrist assert for approximately 2 weeks. Denies any injury or fall. Patient states that she has a 4-month-old child at home whom she is constantly lifting. Patient has a wrist brace that she is warm with some relief. Patient denies taking any Motrin or Tylenol. Denies numbness and tingling to the hand, no weakness of the arm, fevers, chills. Past History - Travel Traveled outside of the country in the last 30 days: No Close contact w/someone who was outside of country & ill: No - Past Medical History Allergies/Adverse Reactions: Allergies Allergy/AdvReac Type Severity Reaction Status Date / Time No Known Allergies Allergy Verified 02/20/17 14:23 Home Medications: Ambulatory Orders Ibuprofen 800 mg PO TID #30 tablet 02/20/17 Methylprednisolone [Medrol Dose Etienne] 4 mg PO ASDIR #21 tablet 02/20/17 Asthma: Yes COPD: No Other medical history: arthritis. migraines - Suicide/Smoking/Psychosocial Hx Smoking History: Never smoked Have you smoked in the past 12 months: No Hx Alcohol Use: No Drug/Substance Use Hx: No Substance Use Type: None Review of Systems - Review of Systems Able to Perform ROS?: Yes Comments:: 02/20/17 15:25 CONSTITUTIONAL: Absent: fever, chills, diaphoresis, generalized weakness, malaise, loss of appetite HEENT: Absent: rhinorrhea, nasal congestion, throat pain, throat swelling, difficulty swallowing, mouth swelling, ear pain, eye pain, visual Changes CARDIOVASCULAR: Absent: chest pain, loss of consciousness, palpitations, irregular heart rate, peripheral edema RESPIRATORY: Absent: cough, shortness of breath, dyspnea with exertion, orthopnea, wheezing, stridor, hemoptysis GASTROINTESTINAL: Absent: abdominal pain, abdominal distension, nausea, vomiting, diarrhea, constipation, melena, hematochezia GENITOURINARY: Absent: dysuria, frequency, urgency, hesitancy, hematuria, flank pain, genital pain MUSCULOSKELETAL: Present: L wrist pain Absent: myalgia, arthralgia, joint swelling SKIN: Absent: rash, itching, pallor HEMATOLOGIC/IMMUNOLOGIC: Absent: easy bleeding, easy bruising, lymphadenopathy, frequent infections ENDOCRINE: Absent: unexplained weight gain, unexplained weight loss, heat intolerance, cold intolerance NEUROLOGIC: Absent: headache, focal weakness or paresthesias, dizziness, unsteady gait, seizure, mental status changes, bladder or bowel incontinence PSYCHIATRIC: Absent: anxiety, depression, suicidal or homicidal ideation, hallucinations. Is the patient limited Urdu proficient: No *Physical Exam - Vital Signs Last Vital Signs Temp Pulse Resp BP Pulse Ox 97.7 F 82 20 142/85 99 02/20/17 14:20 02/20/17 14:20 02/20/17 14:20 02/20/17 14:20 02/20/17 14:20 - Physical Exam Comments: 02/20/17 15:56 GENERAL: The patient is awake, alert, and fully oriented, in no acute distress. HEAD: Normal with no signs of trauma. EYES: Pupils equal, round and reactive to light, extraocular movements intact, sclera anicteric, conjunctiva clear. EXTREMITIES: Normal range of motion, no edema. (+) finklestein test to L wrist. Negative velazquez exam. L radial pulse 2+ and regular. NEUROLOGICAL: Normal speech, normal gait. PSYCH: Normal mood, normal affect. SKIN: Warm, Dry, normal turgor, no rashes or lesions noted. Medical Decision Making - Medical Decision Making 02/20/17 15:57 Patient is a 54-year-old female no past medical history presents emergency Department with 2 weeks of left wrist pain. Given physical exam findings and history (recent child) most likely De Quervians tenosynovitis. We will treat with steroids at this time. Patient also instructed to wear her wrist brace. Instructed to follow-up with orthopedics. We'll discharge home at this time. Patient feels comfortable with discharge planning and follow-up. All questions were answered. *DC/Admit/Observation/Transfer Diagnosis at time of Disposition: De Quervain's disease (tenosynovitis) - Discharge Dispostion Disposition: HOME Condition at time of disposition: Stable - Prescriptions Prescriptions: Ibuprofen 800 mg PO TID #30 tablet Methylprednisolone [Medrol Dose Etienne] 4 mg PO ASDIR #21 tablet - Referrals Referrals: Bry Garcia MD [Staff Physician] - - Patient Instructions Printed Discharge Instructions: DI for Tenosynovitis Additional Instructions: You have tendinitis of your left wrist (De Quervian's). Please take the steroids as prescribed. When the finished the steroid pack, you may take the ibuprofen as prescribed. Please wear the wrist brace as much as tolerated. You may take it off to shower. You may use heat to the affected area to help with your pain. Do gentle stretching exercises. Avoid lifting with her left hand as much as possible. Follow-up with orthopedics in 5-7 days if her symptoms are not getting better. Return to the emergency department if you have worsening pain, redness to the wrist, fevers, chills or any changes in your symptoms. - Post Discharge Activity Forms/Work/School Notes: Back to Work
[2017-02-20] MEDS ORDERED: IBUPROFEN 400 MG TABLET (FP) PO ONE ×2 (15:51)
== END 2017-02-20 15:52 | disposition home or self-care (01) ==
LOC: JERFT 14:18
DX: M65.4 Radial styloid tenosynovitis [de Quervain] (principal)
CPT/HCPCS: 99281-25

== ENCOUNTER 2019-01-16 21:55 | Emergency (ER) | payer OTHER ==
[2019-01-16 22:18] VITALS: BP 136/81; PULSE 84; TEMP 98.1; BMI 31.8
--- NOTE | 2019-01-16 22:53 | PDOC ---
Attending Attestation - Resident Resident Name: Harley Garcia - ED Attending Attestation I have performed the following: I have examined & evaluated the patient, The case was reviewed & discussed with the resident, I agree w/resident's findings & plan - HPI HPI: 01/17/19 01:09 see resident hpi - Physicial Exam PE: 01/17/19 01:10 agree with exam - Medical Decision Making 01/17/19 01:10 38-year-old female with recent upper respiratory infection complaining of left- sided nonreproducible chest pain Chest x-ray shows no acute infiltrate EKG and labs unremarkable aside from an elevated d-dimer Due to pleuritic nature of pain, some recent shortness of breath and nonreproducible nature a CTA will be ordered with plans for DC home pending results
[2019-01-16 23:05] LABS: HEMOGLOBIN 12.8 GM/dL (10.7-15.3); MCH 28.6 pg (25.7-33.7); MCHC 32.8 g/dl (32.0-36.0); MEAN CELL VOLUME 87.2 fl (80-96); MEAN PLT VOLUME 8.8 fl (7.5-11.1); PLATELET COUNT 312 K/MM3 (134-434); RBC 4.47 M/mm3 (3.60-5.2); RDW 13.9 % (11.6-15.6); WHITE BLOOD COUNT 11.1 K/mm3 (4.0-10.0)
--- NOTE | 2019-01-16 23:21 | PDOC ---
History of Present Illness - General Chief Complaint: Chest Pain Stated Complaint: BLOOD WORK Time Seen by Provider: 01/16/19 22:53 History Source: Patient Exam Limitations: No Limitations - History of Present Illness Initial Comments: 01/16/19 23:15 38 yo female pmh childhood asthma and bronchitis presents to the ED with 2 days of SOB, non exertional CP and sore/itchy throat. Pt states she had URI symptoms 2 weeks ago, resolved. CP described as pressure, worse with taking deep breaths , associated SOB, denies radiating pain, back pain, abdominal pain, OCP use, calf tenderness, blood clotting disorders, F/C/N/V. Past History - Past Medical History Allergies/Adverse Reactions: Allergies Allergy/AdvReac Type Severity Reaction Status Date / Time No Known Allergies Allergy Verified 01/16/19 22:18 Home Medications: Ambulatory Orders NK [No Known Home Medication] 01/16/19 Asthma: Yes COPD: No - Immunization History Immunization Up to Date: Yes - Psycho Social/Smoking Cessation Hx Smoking History: Never smoked Have you smoked in the past 12 months: No Information on smoking cessation initiated: No Hx Alcohol Use: No Drug/Substance Use Hx: No Substance Use Type: None *Physical Exam - Vital Signs Last Vital Signs Temp Pulse Resp BP Pulse Ox 98.1 F 84 18 136/81 100 01/16/19 22:15 01/16/19 22:15 01/16/19 22:15 01/16/19 22:15 01/16/19 22:36 ED Treatment Course - LABORATORY CBC & Chemistry Diagram: 01/16/19 22:50 01/16/19 22:50 - ADDITIONAL ORDERS Additional order review: 01/16/19 22:50 RBC 4.47 MCV 87.2 MCHC 32.8 RDW 13.9 MPV 8.8 Medical Decision Making - Medical Decision Making 01/17/19 01:06 38 yo female pmh childhood asthma and bronchitis presents to the ED with 2 days of SOB, non exertional CP and sore/itchy throat. Pt states she had URI symptoms 2 weeks ago, resolved. CP described as pressure, worse with taking deep breaths , associated SOB, denies radiating pain, back pain, abdominal pain, OCP use, calf tenderness, blood clotting disorders, F/C/N/V. vitals WNL Trop neg CXR neg for acute disease/infiltrate Lung exam normal D dimer ordered for low rist PE r/o, elevated. CTA ordered Discharge - Discharge Information Problems reviewed: Yes Clinical Impression/Diagnosis: Chest pain, Shortness of breath Condition: Stable Disposition: HOME - Admission No - Follow up/Referral Referrals: ON STAFF,NOT [Primary Care Provider] - John Hauser MD [Staff Physician] - - Patient Discharge Instructions Patient Printed Discharge Instructions: DI for Atypical Chest Pain, DI for Shortness of Breath Additional Instructions: Please see your Primary Doctor within the next 48 hours and make an appointment to see the Kil[employer] Worker referred to you. Return to the ER for new or concerning symptoms including but not limited to: chest pain, difficulty breathing. Thank you - Post Discharge Activity
[2019-01-16 23:53] LABS: ALBUMIN 3.8 g/dl (3.4-5.0); ALK PHOS 144 U/L (45-117); ANION GAP 8 MMOL/L (8-16); BILIRUBIN,TOTAL 0.2 mg/dL (0.2-1); BLOOD UREA NITROGEN 19.2 mg/dL (7-18); CALCIUM 9.1 mg/dL (8.5-10.1); CHLORIDE 105 mmol/L (98-107); CO2 28 mmol/L (21-32); GLUCOSE,RANDOM 87 mg/dL (74-106); POTASSIUM 3.7 mmol/L (3.5-5.1); SGOT/AST 13 U/L (15-37); SGPT/ALT 22 U/L (13-61); SODIUM 142 mmol/L (136-145); TOT PROT 7.4 g/dl (6.4-8.2)
--- NOTE | 2019-01-17 10:12 | EKG ---
Test Reason : Blood Pressure : / mmHG Vent. Rate : 088 BPM Atrial Rate : 088 BPM P-R Int : 156 ms QRS Dur : 098 ms QT Int : 352 ms P-R-T Axes : 039 035 031 degrees QTc Int : 425 ms POOR DATA QUALITY, INTERPRETATION MAY BE ADVERSELY AFFECTED NORMAL SINUS RHYTHM NORMAL ECG WHEN COMPARED WITH ECG OF 19-SEP-2016 13:23, NO SIGNIFICANT CHANGE WAS FOUND Confirmed by MALIKA PAGE, RICHY ([id number]) on 01/17/2019 10:12:10 AM Referred By: Confirmed By:RICHY DALY MD
== END 2019-01-17 02:51 | disposition home or self-care (01) ==
LOC: JER 21:55
DX: R07.9 Chest pain, unspecified (principal); R06.02 Shortness of breath; J45.909 Unspecified asthma, uncomplicated
CPT/HCPCS: 36415; 71046-TC-FY; 71275-TC; 80053; 82550; 84484; 84703; 85027; 85379; 87070; 87880; 93005; 93010; 99283-25